=== PATIENT | male | born 1950 | race African-American/Black ===

== ENCOUNTER 2017-06-26 21:04 | Emergency (ER) | payer MEDICARE ==
[~2017-06-26] VITALS: Ht 175.3 cm; Wt 100.0 kg
[2017-06-26] MEDS ORDERED: HYDROCODONE/ACETAMINOPHEN 5/325MG TABLET PO ONE (22:45)
[2017-06-27 00:46] VITALS: BP 156/72
== END 2017-06-27 01:42 | disposition home or self-care (01) ==
LOC: ER 21:27
DX: S33.9XXA Sprain of unspecified parts of lumbar spine and pelvis, initial encounter (principal); E11.9 Type 2 diabetes mellitus without complications; I10 Essential (primary) hypertension; C61 Malignant neoplasm of prostate; V03.99XA Pedestrian with other conveyance injured in collision with car, pick-up truck or van, unspecified whether traffic or nontraffic accident, initial encounter; Y93.89 Activity, other specified; Y99.8 Other external cause status; Y92.481 Parking lot as the place of occurrence of the external cause
CPT/HCPCS: 72100; 99284